=== PATIENT | female | born 1950 | race Caucasian/White ===

== ENCOUNTER 2018-01-02 15:40 | Emergency (ER) | payer MEDICARE, BC ==
[2018-01-02] MEDS: ASPIRIN 81 MG CHEWABLE TABLET PO ONE (16:12)
[2018-01-02] MEDS: NITROGLYCERIN 0.4MG SL TABLET #25 BTL SL PRN (16:15)
[2018-01-02 16:19] LABS: BASO % 0.3 % (0-6); EOS % 1.6 % (0-6); GRAN % 49.8 % (47-80); HEMATOCRIT 41.7 % (35.0-47.0); HEMOGLOBIN 13.6 gm/dl (11.6-16.0); MEAN CELL VOLUME 87.1 fl (81-97); MEAN CORPUSCULAR HEMOGLOBIN 28.4 pg (27-33); MEAN CORPUSCULAR HGB CONC 32.6 g/dl (32-36); MEAN PLATELET VOLUME 10.4 fl (7.4-10.4); MONO % 9.3 % (0-9); PLATELET COUNT 271 K/uL (130-400); RED BLOOD COUNT 4.79 M/uL (3.80-5.40); RED CELL DISTRIBUTION WIDTH 13.4 % (11.5-14.5); WHITE BLOOD COUNT W/O DIFF 6.8 K/uL (4.2-12.2)
[2018-01-02 16:30] LABS: BLOOD UREA NITROGEN 18 mg/dL (8-23); CREATININE 0.9 mg/dL (0.5-0.9); EST GLOMERULAR FILTRATION RATE > 60 mL/min; PARTIAL THROMBOPLASTIN TIME 26.6 SECONDS (24.5-39.1); PROTHROMBIN TIME (PATIENT) 11.1 SECONDS (9.5-12.1)
[2018-01-02 16:33] LABS: GLUCOSE,RANDOM 106 mg/dL (74-109)
[2018-01-02 16:38] LABS: CKMB 2.8 ng/mL (<3.77)
--- NOTE | 2018-01-02 17:15 | Emergency Department Record ---
History of Present Illness - General Chief Complaint: Chest Pain Stated Complaint: CHEST PAIN Time Seen by Provider: 01/02/18 15:43 Source: Patient, RN notes reviewed Mode of Arrival: Ambulatory - History of Present Illness Initial Comments: epigastric abdominal pain and substernal chest pain started last night and and this afternoon. heavy pressure type sensation MD Complaint: Chest pain Onset/Timin -: Minutes(s) Pain Location: Substernal, Left chest Severity: Moderate Severity scale (1-10): 7 Quality: Aching, Heaviness - Related Data Home Medications Medication Instructions Recorded Confirmed Last Taken Aspirin 81 mg PO DAILY 01/02/18 01/02/18 1 Day Ago ~01/01/18 Atenolol 25 mg PO DAILY 01/02/18 01/02/18 1 Day Ago ~01/01/18 Butalbital/Aspirin/Caffeine 1 each PO BID PRN 01/02/18 01/02/18 1 Day Ago [Fiorinal 50-325-40 mg Capsule] ~01/01/18 Calcium Carb/Vitamin D3/Vit K1 1 each PO DAILY 01/02/18 01/02/18 1 Day Ago [Calcium + D Soft Chewable Tab] ~01/01/18 Cholecalciferol (Vitamin D3) 1,000 units PO DAILY 01/02/18 01/02/18 1 Day Ago [Vitamin D3] ~01/01/18 Flaxseed Oil [Flax Seed Oil] 1,000 mg PO DAILY 01/02/18 01/02/18 1 Day Ago ~01/01/18 Glucosamine Sulf/Chondroitin A 1 each PO BID 01/02/18 01/02/18 1 Day Ago [Glucosamine-Chondroitin Cap] ~01/01/18 Levothyroxine Sodium [Synthroid] 50 mcg PO DAILY 01/02/18 01/02/18 1 Day Ago ~01/01/18 Multivitamin [Multiple Vitamins] 1 each PO DAILY 01/02/18 01/02/18 1 Day Ago ~01/01/18 Omeprazole 20 mg PO DAILY 01/02/18 01/02/18 1 Day Ago ~01/01/18 Ubidecarenone [Coq-10] 200 mg PO DAILY 01/02/18 01/02/18 1 Day Ago ~01/01/18 Vitamin B Complex 1 each PO DAILY 01/02/18 01/02/18 1 Day Ago ~01/01/18 Allergies Allergy/AdvReac Type Severity Reaction Status Date / Time acetaminophen Allergy VOMITING Verified 01/02/18 15:55 [From Darvocet-N] hydrocodone bitartrate Allergy VOMITING Verified 01/02/18 15:55 [From Vicodin] ketorolac tromethamine Allergy SWOLLEN Verified 01/02/18 15:55 [From Toradol] EYES NSAIDS (Non-Steroidal Allergy NAUSEA AND Verified 01/02/18 15:55 Anti-Inflamma VOMITING prochlorperazine edisylate Allergy VOMITING Verified 01/02/18 15:55 [From Compazine] prochlorperazine maleate Allergy VOMITING Verified 01/02/18 15:55 [From Compazine] propoxyphene napsylate Allergy VOMITING Verified 01/02/18 15:55 [From Darvocet-N] topiramate [From Topamax] AdvReac RAPID Verified 01/02/18 15:55 HEART RATE codeine Allergy VOMITING Uncoded 01/02/18 15:55 Travel Screening - Travel/Exposure Within Last 30 Days Have you traveled within the last 30 days?: No - Travel/Exposure Within Last Year Have you traveled outside the [place] in the last year?: No - Additonal Travel Details Have you been exposed to anyone with a communicable illness?: No - Travel Symptoms Symptom Screening: None Review of Systems Reviewed: No additional complaints except as noted below Constitutional: Reports: As per HPI. Denies: Chills, Fever, Malaise, Night sweats, Weakness, Weight change Eyes: Reports: As per HPI. Denies: Eye discharge, Eye pain, Photophobia, Vision change ENT: Reports: As per HPI. Denies: Congestion, Dental pain, Ear pain, Epistaxis , Hearing loss, Throat pain Respiratory: Reports: As per HPI. Denies: Cough, Dyspnea, Hemoptysis, Stridor, Wheezes Cardiovascular: Reports: As per HPI. Denies: Arrhythmia, Chest pain, Dyspnea on exertion, Edema, Murmurs, Orthopnea, Palpitations, Paroxysmal nocturnal dyspnea, Rheumatic Fever, Syncope Endocrine: Reports: As per HPI. Denies: Fatigue, Heat or cold intolerance, Polydipsia, Polyuria Gastrointestinal: Reports: As per HPI. Denies: Abdominal pain, Constipation, Diarrhea, Hematemesis, Hematochezia, Melena, Nausea, Vomiting Genitourinary: Reports: As per HPI. Denies: Abnormal menses, Discharge, Dyspareunia, Dysuria, Frequency, Hematuria, Incontinence, Retention, Urgency Musculoskeletal: Reports: As per HPI. Denies: Arthralgia, Back pain, Gout, Joint swelling, Myalgia, Neck pain Skin: Reports: As per HPI. Denies: Bruising, Change in color, Change in hair/ nails, Lesions, Pruritus, Rash Neurological: Reports: As per HPI. Denies: Abnormal gait, Confusion, Headache, Numbness, Paresthesias, Seizure, Tingling, Tremors, Vertigo, Weakness Psychiatric: Reports: As per HPI. Denies: Anxiety, Auditory hallucinations, Depression, Homicidal thoughts, Suicidal thoughts, Visual hallucinations Hematological/Lymphatic: Reports: As per HPI. Denies: Anemia, Blood Clots, Easy bleeding, Easy bruising, Swollen glands Past Medical History - SOCIAL HISTORY Smoking Status: Former smoker Alcohol Use: Rare Drug Use: None - RESPIRATORY Hx Respiratory Disorders: No - CARDIOVASCULAR Hx Cardiac Cath: Yes (10 years ago) Hx Chest Pain: Yes Hx Hypotension: Yes Hx Irregular Heartbeat: Yes Hx Palpitations: Yes Comment:: mitral valve prolapse - NEURO Hx Headaches: Yes - GI Hx Reflux: Yes - Hx Genitourinary Disorders: No - ENDOCRINE Hx Diabetes: No Hx Thyroid Disease: Yes - PSYCH Hx Psych Problems: No - HEMATOLOGY/ONCOLOGY Hx Anemia: No Hx Blood Disorders: No Hx Bruising: No Hx Cancer: No Family Medical History Any Significant Family History?: Yes Hx Cancer: Father Hx Diabetes: Mother Hx Heart Disease: Mother, Grandparents Hx Stroke: Mother Physical Exam - General General Appearance: Alert, Oriented x3, Cooperative, No acute distress - Head Head exam: Normal inspection - Eye Eye exam: Normal appearance, PERRL Pupils: Normal accommodation - ENT ENT exam: Normal exam, Mucous membranes moist, Normal external ear exam, Normal orophraynx, TM's normal bilaterally Ear exam: Normal external inspection. negative: External canal tenderness Nasal Exam: Normal inspection. negative: Discharge, Sinus tenderness Mouth exam: Normal external inspection, Tongue normal Teeth exam: Normal inspection. negative: Dental caries Throat exam: Normal inspection. negative: Tonsillar erythema, Tonsillar exudate - Neck Neck exam: Normal inspection, Full ROM. negative: Tenderness - Respiratory Respiratory exam: Normal lung sounds bilaterally. negative: Respiratory distress - Cardiovascular Cardiovascular Exam: Regular rate, Normal rhythm, Normal heart sounds - GI/Abdominal GI/Abdominal exam: Soft, Normal bowel sounds, Tenderness (epigastric abdominal pain and substernal abdominal pain) - Rectal Rectal exam: Deferred - exam: Deferred - Extremities Extremities exam: Normal inspection, Full ROM, Normal capillary refill. negative: Tenderness - Back Back exam: Reports: Normal inspection, Full ROM. Denies: Muscle spasm, Rash noted, Tenderness - Neurological Neurological exam: Alert, Normal gait, Oriented X3, Reflexes normal - Psychiatric Psychiatric exam: Normal affect, Normal mood - Skin Skin exam: Dry, Intact, Normal color, Warm Course Vital Signs 01/02/18 01/02/18 01/02/18 15:43 15:44 16:20 Temperature 97.6 F Pulse Rate 69 Pulse Rate [ 77 Pulse Ox Probe] Respiratory 18 20 Rate Blood Pressure 146/92 Blood Pressure 111/72 114/75 [Right Arm] Pulse Ox 98 97 01/02/18 16:33 Temperature Pulse Rate Pulse Rate [ 72 Pulse Ox Probe] Respiratory 18 Rate Blood Pressure Blood Pressure 114/65 [Right Arm] Pulse Ox 97 - Reevaluation(s) Reevaluation #1: 01/02/18 17:[address] House and will transfer to [facility] for further workup and cardiac evaluation her perinatal educator is Dr Gautam cardio 01/02/18 18:03 Medical Decision Making - Data Complexity MDM Data: Labs Ordered and/or Reviewed (cardiac labs negative), X-Ray Ordered and/or Reviewed (calcified granuloma and nothing acute), EKG Ordered and/or Reviewed (No acute changes) - Lab Data Result diagrams: 01/02/18 16:06 01/02/18 16:06 Lab Results 01/02/18 01/02/18 01/02/18 Range/Units 16:06 16:06 16:06 WBC 6.8 (4.2-12.2) K/uL RBC 4.79 (3.80-5.40) M/uL Hgb 13.6 (11.6-16.0) gm/dl Hct 41.7 (35.0-47.0) % MCV 87.1 (81-97) fl MCH 28.4 (27-33) pg MCHC 32.6 (32-36) g/dl RDW 13.4 (11.5-14.5) % Plt Count 271 (130-400) K/uL MPV 10.4 (7.4-10.4) fl Gran % 49.8 (47-80) % Lymphocytes % 39.0 (16-45) % Monocytes % 9.3 H (0-9) % Eosinophils % 1.6 (0-6) % Basophils % 0.3 (0-6) % PT 11.1 (9.5-12.1) SECONDS INR 1.0 APTT 26.6 (24.5-39.1) SECONDS Sodium 143 (136-145) mmol/L Potassium 3.9 (3.4-4.5) mmol/L Chloride 104 (98-107) mmol/L Carbon Dioxide 23.0 (22-29) mmol/L Anion Gap 16.0 (7-16) BUN 18 (8-23) mg/dL Creatinine 0.9 (0.5-0.9) mg/dL Estimated GFR > 60 mL/min Random Glucose 106 (74-109) mg/dL Calcium 9.3 (8.8-10.2) mg/dL CK-MB (CK-2) 2.8 (<3.77) ng/mL Troponin T < 0.010 (0-0.010) ng/mL Disposition Clinical Impression: Angina at rest Chest pain Qualifiers: Chest pain type: unspecified Qualified Code(s): R07.9 - Chest pain, unspecified Disposition: Acute Care Hospital Transfer Condition: (2) Stable Forms: Patient Portal Access Time of Disposition: 17:20 Quality - Quality Measures Quality Measures: N/A - Blood Pressure Screening Does Patient Have Any of the Following: No Blood Pressure Classification: Hypertensive Reading Systolic Measurement: 146 Diastolic Measurement: 92 Screening for High Blood Pressure: < Pre-Hypertensive BP, F/U Documented > [ [id number]] Pre-Hypertensive Follow-up Interventions: Referral to alternative/primary care provider.
[2018-01-02] MEDS: MAGNESIUM HYDROXIDE/AL HYDROX 30 ML, LIDOCAINE VISC 2% 200 MG PO ONE ×2 (17:24)
[2018-01-02 17:54] LABS: BILIRUBIN,TOTAL < 0.20 mg/dL (0.2-1.0)
[2018-01-02 17:55] LABS: TOTAL PROTEIN 6.9 g/dL (6.6-8.7)
[2018-01-02 17:59] LABS: ALBUMIN 4.4 g/dL (4.0-5.0); ALKALINE PHOSPHATASE 69 U/L (35-104); ALT/SGPT 17 U/L (<33); AST/SGOT 21 U/L (10.0-35.0)
[2018-01-02 18:00] LABS: BILIRUBIN,DIRECT < 0.2 mg/dL (0-0.3); LIPASE 66 U/L (13-60)
--- NOTE | 2018-01-03 08:40 | RADIOLOGY REPORT ---
EXAM: CHEST, SINGLE VIEW HISTORY: CHEST PAIN. TECHNIQUE: A single frontal view of the chest was obtained. Comparison: 04/06/10 chest. FINDINGS: The heart size is normal. Calcified granuloma in the left lung base. Calcified hilar lymph nodes. Osteopenia. No pneumothorax. The lungs are otherwise clear. IMPRESSION: NO ACUTE CARDIOPULMONARY PROCESS. JOB NUMBER: [id number] MTDD
== END 2018-01-02 19:52 | disposition short-term general hospital (02) ==
LOC: ER 15:40
DX: I20.0 Unstable angina (principal); R10.13 Epigastric pain; F17.210 Nicotine dependence, cigarettes, uncomplicated
CPT/HCPCS: 71045; 80048; 80076; 82553; 83690; 84484; 85025; 85610; 85730; 93005; 93010; 99285